=== PATIENT | male | born 1935 | race Caucasian/White ===

== ENCOUNTER → 2016-09-06 | Outpatient (CLI) | payer MEDICARE, MEDICAID ==
[~2016-09-06] MED LIST: ASPIR 8181 MG ORAL; ASPIRIN EC81 MG ORAL; ASPIRIN-LOW81 MG ORAL; FISH OIL CAP1000 MG ORAL; FLOMAX0.4 MG ORAL; JANUVIA100 MG ORAL; LEXAPRO10 MG ORAL; LIPITOR20 MG ORAL; LISINOPRIL10 MG ORAL; METFORMIN HCL1000 M1 ORAL; VITAMIN D3400 UNI2 PO
--- NOTE | 2016-09-06 13:44 | GI Initial Consult Note ---
Marta Yeboahoi N.P. 09/06/16 1344: History of Present Illness General Date patient seen: Sep 06, 2016 Time patient seen: 13:00 Reason for Consultation: CONSTIPATION / HX of Colonic polyps Present Illness HPI 81 year old male s/p colonoscopy in 2013 with multiple colonic polyps presents today with c/o of constipation, abdominal bloating, abdominal pain after BMs and occasional GERD. DATE OF PROCEDURE: 11/19/2013 SURGEON: Mulugeta Platt M.D. INDICATION: Multiple colonic polyps. SUMMARY OF FINDINGS: Multiple colonic polyps, one large enough that cannot be endoscopically resected. RECOMMENDATIONS: We recommend the patient to have a surgical evaluation for possible right hemicolectomy and removal of this large polyp. Home Meds Active Scripts Aspirin* (ASPIR 81*) 81 Mg Tablet., 81 MG ORAL DAILY, #1 TAB Prov:YeboahMarta John N.P. 09/06/16 Reported Medications Aspirin Ec* (ASPIRIN EC*) 81 Mg Tablet., 81 MG ORAL DAILY, TAB 09/06/16 Atorvastatin Calcium* (LIPITOR*) 20 Mg Tablet, 20 MG ORAL BEDTIME, TAB 10/06/13 Escitalopram Oxalate* (LEXAPRO*) 10 Mg Tablet, 10 MG ORAL DAILY, TAB 09/24/13 Lisinopril* (LISINOPRIL*) 10 Mg Tablet, 10 MG ORAL DAILY, TAB 09/24/13 Sitagliptin (Januvia) 100 Mg Tab, 100 MG ORAL DAILY, TAB 09/24/13 Tamsulosin HCl (Flomax) 0.4 Mg Cap, 0.4 MG ORAL DAILY, CAP 09/24/13 Metformin Hcl* (METFORMIN HCL*) 1,000 Mg Tablet, 1000 MG ORAL BID, TAB 09/24/13 Cholecalciferol (Vitamin D3) (VITAMIN D3) 400 Unit Capsule, 400 UNIT PO, CAP 09/24/13 Discontinued Reported Medications Fish Oil (Fish Oil 1,000 mg Capsule) 1,000 Mg Cap, 1000 MG ORAL DAILY, CAP 09/24/13 Med list reviewed/reconciled: Yes Allergies: Coded Allergies: No Known Allergies (Unverified , 09/24/13) Patient History History Provided By: Patient, Medical Record PMH Narrative elevated cholesterol HTN BPH / Prostate CA DM Cardiac Disease with pacemaker Social History: Reports: alcohol use - occasional Review of Systems All Other Systems: negative except mentioned in HPI Physical Exam T 97.7 BP 116-72 P 83 99 RA WT 144.7, denies any unintentional weight loss Sp02 EP Interpretation: reviewed General Appearance: well appearing, no apparent distress, alert Head: normocephalic EENT: normal ENT inspection Neck: full range of motion Respiratory: normal breath sounds, no respiratory distress Cardiovascular: normal rate Gastrointestinal: non tender, normal bowel sounds Rectal: deferred Genitourinary: normal inspection Musculoskeletal: back normal Neurologic: normal inspection, alert, oriented x3, responsive Psychiatric: normal inspection, judgement/insight normal, memory normal Skin: normal inspection, normal color, no rash, warm/dry Lymphatic: normal inspection, no adenopathy GI: Plan Problems: (1) Constipated (2) Colonoscopy planned (3) Elevated cholesterol (4) Pacemaker Plan recommend colonoscopy given hx of multiple colonic polyps >> patient will contact clinic to schedule - CLD & Suprep instructions given and acknowledged by patient. Rx Miralax daily Seen with Dr. Platt. MULUGETA PLATT 09/07/16 4567: History of Present Illness Present Illness Home Meds Active Scripts Aspirin* (ASPIR 81*) 81 Mg Tablet., 81 MG ORAL DAILY, #1 TAB Prov:Marta Yeboah NEun 09/06/16 Reported Medications Aspirin Ec* (ASPIRIN EC*) 81 Mg Tablet., 81 MG ORAL DAILY, TAB 09/06/16 Atorvastatin Calcium* (LIPITOR*) 20 Mg Tablet, 20 MG ORAL BEDTIME, TAB 10/06/13 Escitalopram Oxalate* (LEXAPRO*) 10 Mg Tablet, 10 MG ORAL DAILY, TAB 09/24/13 Lisinopril* (LISINOPRIL*) 10 Mg Tablet, 10 MG ORAL DAILY, TAB 09/24/13 Sitagliptin (Januvia) 100 Mg Tab, 100 MG ORAL DAILY, TAB 09/24/13 Tamsulosin HCl (Flomax) 0.4 Mg Cap, 0.4 MG ORAL DAILY, CAP 09/24/13 Metformin Hcl* (METFORMIN HCL*) 1,000 Mg Tablet, 1000 MG ORAL BID, TAB 09/24/13 Cholecalciferol (Vitamin D3) (VITAMIN D3) 400 Unit Capsule, 400 UNIT PO, CAP 09/24/13 Discontinued Reported Medications Fish Oil (Fish Oil 1,000 mg Capsule) 1,000 Mg Cap, 1000 MG ORAL DAILY, CAP 09/24/13 Allergies: Coded Allergies: No Known Allergies (Unverified , 09/24/13) GI: Plan Plan The patient was seen and examined at bedside and all new and available data was reviewed in the patients chart. I agree with the above findings, impression and plan. (Patient seen earlier today. Signature stamp does not reflect patient encounter time.). -Zehra Song MDh John Clarke Sep 06, 2016 13:44 MULUGETA PLATT Sep 07, 2016 14:57
[2016-09-06 14:53] VITALS: BP 116/72
== END | disposition home or self-care (01) ==
LOC: PAN 12:42
DX: E78.00 Pure hypercholesterolemia, unspecified (principal); Z95.0 Presence of cardiac pacemaker; R10.9 Unspecified abdominal pain; I10 Essential (primary) hypertension; E11.9 Type 2 diabetes mellitus without complications; Z85.46 Personal history of malignant neoplasm of prostate; I25.10 Atherosclerotic heart disease of native coronary artery without angina pectoris
CPT/HCPCS: 99201

== ENCOUNTER 2017-05-30 08:09 | Day surgery (SDC) | payer MEDICARE, MEDICAID ==
[~2017-05-30] VITALS: Ht 149.9 cm; Wt 64.4 kg
[2017-05-30] VITALS (7 sets, daily range): BP systolic 119–137; BP diastolic 61–77
--- NOTE | 2017-05-30 06:50 | Anethesia Preoperative Eval ---
Anesthesia Pre-op PMH/ROS General Date of Evaluation: May 30, 2017 Time of Evaluation: 06:48 Anesthesiologist: jarret ASA Score: ASA 4 Mallampati Score Class I : Soft palate, uvula, fauces, pillars visible Class II: Soft palate, uvula, fauces visible Class III: Soft palate, base of uvula visible Class IV: Only hard plate visible Mallampati Classification: Class II Surgeon: pranav Diagnosis: colon screening Surgical Procedure: colonoscopy Anesthesia History: none Social History: smoking - nonsmoker Family History: no anesthesia problems Allergies: Coded Allergies: No Known Allergies (Unverified , 09/24/13) Medications: see eMAR Past Medical History Cardiovascular: Reports: HTN, CAD, arrhythmia, other - pacemaker Gastrointestinal/Genitourinary: Reports: other - prostate cancer Neurologic/Psychiatric: Reports: depression/anxiety Endocrine: Reports: DM Anesthesia Pre-op Phys. Exam Physician Exam Last Vital Signs Date Time Temp Pulse Resp B/P (MAP) Pulse Ox O2 Delivery O2 Flow Rate FiO2 05/30/17 09:45 97.0 58 20 137/69 100 Room Air Constitutional: NAD Neurologic: CN 2-12 intact Cardiovascular: RRR Respiratory: CTA Gastrointestinal: S/NT/ND Airway Exam Mallampati Score: Class II MO: full Neck: supple TMD: 2fb ROM: limited Anesthesia Pre-op A/P Labs Labs Test 05/30/17 09:10 05/30/17 10:00 White Blood Count 5.1 K/UL (4.8-10.8) Red Blood Count 4.58 M/UL (4.70-6.10) Hemoglobin 14.8 G/DL (14.2-18.0) Hematocrit 46.6 % (42.0-52.0) Mean Corpuscular Volume 102 FL (80-99) Mean Corpuscular Hemoglobin 32.4 PG (27.0-31.0) Mean Corpuscular Hemoglobin Concent 31.9 G/DL (32.0-36.0) Red Cell Distribution Width 11.2 % (11.6-14.8) Platelet Count 239 K/UL (150-450) Mean Platelet Volume 7.7 FL (6.5-10.1) Neutrophils (%) (Auto) 67.0 % (45.0-75.0) Lymphocytes (%) (Auto) 23.9 % (20.0-45.0) Monocytes (%) (Auto) 6.3 % (1.0-10.0) Eosinophils (%) (Auto) 1.5 % (0.0-3.0) Basophils (%) (Auto) 1.4 % (0.0-2.0) Sodium Level 143 MMOL/L (136-145) Potassium Level 4.9 MMOL/L (3.5-5.1) Chloride Level 106 MMOL/L (98-107) Carbon Dioxide Level 27 MMOL/L (21-32) Anion Gap 10 mmol/L (5-15) Blood Urea Nitrogen 18 mg/dL (7-18) Creatinine 1.0 MG/DL (0.55-1.30) Estimat Glomerular Filtration Rate mL/min (>60) Glucose Level 137 MG/DL (74-106) Calcium Level 9.4 MG/DL (8.5-10.1) Studies Pre-op Studies: EKG - av dual paced rhythn with frequent pvcs Risk Assessment & Plan Assessment: asa4 Plan: mac Status Change Before Surgery: No Pre-Antibiotics Drug: MACO Yang May 30, 2017 06:50
[2017-05-30] MEDS ORDERED: INVOKANA100 MG PO (09:41)
[2017-05-30 09:45] LABS: BASOPHILS % (AUTO) 1.4 % (0.0-2.0); EOSINOPHILS % (AUTO) 1.5 % (0.0-3.0); LYMPHOCYTES % (AUTO) 23.9 % (20.0-45.0); MEAN CORPUSCULAR HEMOGLOBIN 32.4 PG (27.0-31.0); MEAN CORPUSCULAR HGB CONC 31.9 G/DL (32.0-36.0); MEAN CORPUSCULAR VOLUME 102 FL (80-99); MEAN PLATELET VOLUME 7.7 FL (6.5-10.1); MONOCYTES % (AUTO) 6.3 % (1.0-10.0); PLATELET COUNT 239 K/UL (150-450); RED BLOOD COUNT 4.58 M/UL (4.70-6.10); RED CELL DISTRIBUTION WIDTH 11.2 % (11.6-14.8); WHITE BLOOD COUNT 5.1 K/UL (4.8-10.8)
[2017-05-30 10:26] LABS: ANION GAP 10 mmol/L (5-15); CALCIUM 9.4 MG/DL (8.5-10.1); CARBON DIOXIDE 27 MMOL/L (21-32); CHLORIDE 106 MMOL/L (98-107); POTASSIUM 4.9 MMOL/L (3.5-5.1); SODIUM 143 MMOL/L (136-145)
--- NOTE | 2017-05-30 10:35 | Pre-Procedure Note/Attestation ---
Pre-Procedure Note/Attestation Complete Prior to Procedure Planned Procedure: not applicable Procedure Narrative: colonoscopy Indications for Procedure Pre-Operative Diagnosis: screening Attestation I attest that I discussed the nature of the procedure; its benefits; risks and complications; and alternatives (and the risks and benefits of such alternatives ), prior to the procedure, with the patient (or the patient's legal international account representative). I attest that, if there was a reasonable possibility of needing a blood transfusion, the patient (or the patient's legal international account representative) was given the [facility] standardized written summary, pursuant to the [place] Blood Safety Act ([place] Health and Safety Code # 1645, as amended). I attest that I re-evaluated the patient just prior to the surgery and that there has been no change in the patient's H&P, except as documented below: MARCELA PLATT May 30, 2017 10:35
--- NOTE | 2017-05-30 10:35 | Short Stay Surgery H&P ---
History of Present Illness History of Present Illness Chief Complaint see recent consult note HPI Annette Verdin is a 82 year old male who was admitted on for Colon Screening Patient History Allergies: Coded Allergies: No Known Allergies (Unverified , 09/24/13) PAST MEDICAL HISTORY: Past Surgeries: Social History: Medication History Scheduled Aspirin* (Aspir 81*), 81 MG ORAL DAILY Atorvastatin Calcium* (Lipitor*), 10 MG ORAL BEDTIME, (Reported) Canagliflozin (Invokana), 100 MG PO da, (Reported) Lisinopril* (Lisinopril*), 20 MG ORAL DAILY, (Reported) Metformin Hcl* (Metformin Hcl*), 1,000 MG ORAL BID, (Reported) Sitagliptin (Januvia), 100 MG ORAL DAILY, (Reported) Tamsulosin HCl (Flomax), 0.4 MG ORAL DAILY, (Reported) Miscellaneous Medications Cholecalciferol (Vitamin D3) (Vitamin D3), 400 UNIT PO, (Reported) Discontinued Medications Escitalopram Oxalate* (Lexapro*), 10 MG ORAL DAILY, (Reported) Discontinued Reason: Pt stopped taking med Physical Exam Vital Signs Last Vital Signs Date Time Temp Pulse Resp B/P (MAP) Pulse Ox O2 Delivery O2 Flow Rate FiO2 05/30/17 09:45 97.0 58 20 137/69 100 Room Air Labs Laboratory Tests Test 05/30/17 09:10 05/30/17 10:00 White Blood Count 5.1 K/UL (4.8-10.8) Red Blood Count 4.58 M/UL (4.70-6.10) L Hemoglobin 14.8 G/DL (14.2-18.0) Hematocrit 46.6 % (42.0-52.0) Mean Corpuscular Volume 102 FL (80-99) H Mean Corpuscular Hemoglobin 32.4 PG (27.0-31.0) H Mean Corpuscular Hemoglobin Concent 31.9 G/DL (32.0-36.0) L Red Cell Distribution Width 11.2 % (11.6-14.8) L Platelet Count 239 K/UL (150-450) Mean Platelet Volume 7.7 FL (6.5-10.1) Neutrophils (%) (Auto) 67.0 % (45.0-75.0) Lymphocytes (%) (Auto) 23.9 % (20.0-45.0) Monocytes (%) (Auto) 6.3 % (1.0-10.0) Eosinophils (%) (Auto) 1.5 % (0.0-3.0) Basophils (%) (Auto) 1.4 % (0.0-2.0) Sodium Level 143 MMOL/L (136-145) Potassium Level 4.9 MMOL/L (3.5-5.1) Chloride Level 106 MMOL/L (98-107) Carbon Dioxide Level 27 MMOL/L (21-32) Anion Gap 10 mmol/L (5-15) Blood Urea Nitrogen 18 mg/dL (7-18) Creatinine 1.0 MG/DL (0.55-1.30) Estimat Glomerular Filtration Rate mL/min (>60) Glucose Level 137 MG/DL (74-106) H Calcium Level 9.4 MG/DL (8.5-10.1) Plan Attestation Are the patient's medical conditions optimized for surgery? MARCELA PLATT May 30, 2017 10:35
[2017-05-30] MEDS ORDERED: Propofol 200mg/20ml IV ONE (11:30)
[2017-05-30] MEDS ORDERED: Lidocaine 1% MPF 10mg/ml 5ml ONE (11:30)
--- NOTE | 2017-05-30 11:52 | Endoscopy Procedure Note ---
Endoscopy Procedure Note Indication for Procedure: screening Procedures Performed: colonoscopy Operative Findings/Diagnosis: 2 polyps Specimen: yes Pt Tolerated Procedure Well: Yes Estimated Blood Loss: none Anesthesiologist: etta Anesthesia: MAC Implant(s) used?: No 50 yrs or older w/o bx or poly: No 10yrs. F/U not recommended: Yes If not recommended, why?: Above average risk 10 yrs. F/U needed: Yes 18 years or older w/prev. colo: Yes <3yrs. since last colonoscopy: No MARCELA PLATT May 30, 2017 11:52
[2017-05-30] MEDS ORDERED: Midazolam 2mg/2ml Inj IVP PRN (12:00)
[2017-05-30] MEDS ORDERED: fentaNYL 100 mcg/2 mL IV PRN (12:00)
[2017-05-30] MEDS ORDERED: DiphenhydrAMINE 50mg/ml Inj IVP PRN (12:00)
[2017-05-30] MEDS ORDERED: Atropine Inj 1mg/10ml Syr IV PRN (12:00)
--- NOTE | 2017-05-30 12:17 | Immediate Post-Op Evaluation ---
Immediate Post-Op Evalulation Immediate Post-Op Evalulation Procedure: colonoscopy Date of Evaluation: May 30, 2017 Time of Evaluation: 12:12 IV Fluids: 650ml 0.9ns Blood Products: none Estimated Blood Loss: negligible Blood Pressure Systolic: 123 Blood Pressure Diastolic: 65 Pulse Rate: 62 Respiratory Rate: 18 O2 Sat by Pulse Oximetry: 100 Temperature (Fahrenheit): 98.7 Pain Score (1-10): 0 Nausea: No Vomiting: No Complications none Patient Status: awake, reacts, patent Hydration Status: adequate Drug: MACO Yang May 30, 2017 12:17
--- NOTE | 2017-05-30 12:18 | 48 Hour Post Anesthesia Eval ---
Post Anesthesia Evaluation Procedure: colonoscopy Date of Evaluation: May 30, 2017 Time of Evaluation: 12:17 Blood Pressure Systolic: 125 0: 63 Pulse Rate: 62 Respiratory Rate: 18 Temperature (Fahrenheit): 98.7 O2 Sat by Pulse Oximetry: 100 Airway: patent Nausea: No Vomiting: No Pain Intensity: 0 Hydration Status: adequate Cardiopulmonary Status: stable Mental Status/LOC: patient returned to baseline Post-Anesthesia Complications: none Follow-up care needed: N/A MACO GROVES May 30, 2017 12:18
--- NOTE | 2017-05-30 22:15 | Procedure Note ---
DATE OF PROCEDURE: 05/30/2017 SURGEON: Mulugeta Mckinnon M.D. PROCEDURE: Colonoscopy with snare polypectomy and biopsy. ANESTHESIA: Rylie Edwards M.D. INSTRUMENT: Olympus adult flexible colonoscope. INDICATION: History of large colonic polyps, status post resection. REASON FOR PROCEDURE: The procedure, risks, benefits, and possible consequences, including hemorrhage, aspiration, perforation and infection, and alternative treatments, were explained to the patient/legal guardian by Dr. Mulugeta Mckinnon and the patient/legal guardian understood and accepted these risks. DESCRIPTION OF PROCEDURE: Informed consent was obtained and the patient was adequately sedated, first rectal examination was performed, which was positive for external and internal hemorrhoids. Then, the scope was advanced from rectum into the anastomosis. Quality of prep was good except for lots of and some greenish fluid was covering the anastomosis. The patient had one sessile polyp, roughly measuring about 6 to 7 mm in the transverse colon, removed with a hot snare polypectomy technique. There was another polyp in the descending colon, which was removed with a cold snare polypectomy technique. unfortunately the second polyp was lost. The patient tolerated the procedure without any complication. Retroflexion of the rectum was performed, which showed evidence of internal and external hemorrhoids. SUMMARY OF FINDINGS: 1. Two colonic polyps removed, see above for detail. 2. Internal and external hemorrhoids. RECOMMENDATIONS: 1. Follow up biopsies and treat accordingly. 2. Treat hemorrhoids if they become symptomatic. 3. Repeat colonoscopy depending on the pathology. If pathology is benign, we will contact for a repeat colonoscopy in 5 years. Mulugeta Mckinnon M.D. DR: Padma JOB#: [id number] CC: ROSENDO
--- NOTE | 2017-06-03 15:49 | Cardiology Report ---
APPROVED REPORT EKG Measurement Heart [id number] PA 184P [id number] AV pacing by demand with frequent premature ventricular complexes Abnormal ECG
== END 2017-05-30 13:15 | disposition home or self-care (01) ==
LOC: GAS 08:09
DX: Z12.11 Encounter for screening for malignant neoplasm of colon (principal); D12.3 Benign neoplasm of transverse colon; K64.4 Residual hemorrhoidal skin tags; K64.8 Other hemorrhoids; I25.10 Atherosclerotic heart disease of native coronary artery without angina pectoris; I10 Essential (primary) hypertension; Z95.0 Presence of cardiac pacemaker; F41.9 Anxiety disorder, unspecified; F32.9 Major depressive disorder, single episode, unspecified; E11.9 Type 2 diabetes mellitus without complications
CPT/HCPCS: 36415; 45380; 45384; 80048; 82962; 85025; 93005; J2704; 94003; 94150